=== PATIENT | male | born 1960 | race Two or more races ===

== ENCOUNTER → 2020-06-02 | Outpatient (REF) | payer BC ==
[2020-06-02 14:13] LABS: BLOOD UREA NITROGEN 16 MG/DL (7-18); CREATININE FOR GFR 1.19 MG/DL (0.70-1.30); GLOMERULAR FILTRATION RATE > 60.0 (>49)
== END ==
LOC: M LAB REF 13:22
PROVIDERS: ATTEND Ophthalmology
DX: Z79.899 Other long term (current) drug therapy (principal)